=== PATIENT | female | born 1945 | race Caucasian/White ===

== ENCOUNTER 2018-03-02 10:24 | Emergency (ER) | payer OTHER, SELFPAY ==
[2018-03-02 10:36] VITALS: BP 165/79; PULSE 84; RESP 15; TEMP 37.2; O2SAT 96; BMI 34.5
--- NOTE | 2018-03-02 11:31 | DI.RAD.S_ITS ---
PROCEDURE: XR ABDOMEN 1V INDICATIONS: pain TECHNIQUE: One view of the abdomen acquired. COMPARISON: None. FINDINGS: Surgical changes and devices: None. Bowel: Bowel gas pattern is normal. There is mild/moderate stool Soft tissues: No suspicious abdominal calcifications. Visualized solid organ contours appear normal in size. Bones: No suspicious bony lesions. Discogenic changes. Bilateral hip arthroplasties. IMPRESSION: No bowel obstruction. Mild to moderate stool Dictated by: Efrem Lee M.D. on 03/02/2018 at 12:11 Approved by: Efrem Lee M.D. on 03/02/2018 at 12:12
[2018-03-02 11:44] VITALS: BP 139/61; PULSE 77; RESP 15; O2SAT 94
[2018-03-02 12:00] LABS: Add Manual Diff / Slide Review NO; Basophils Percent Auto 0.4 % (0-2); Eosinophils Percent Auto 0.7 % (2-4); Hematocrit 40.5 % (36-46); Hemoglobin 13.4 g/dL (12.0-16.0); Lymphocytes Percent Auto 18.5 % (25-40); Mean Corpuscular HGB Conc 33.1 % (30-36); Mean Corpuscular Hemoglobin 30.5 PG (26-34); Monocytes Percent Auto 7.6 % (3-14); Neutrophils Absolute Auto 10800 /uL (3000-5900); Neutrophils Percent Auto 72.8 % (50-75); Platelet Count 370 X10^3/uL (150-400); Red Blood Cell Count 4.41 X10^6/uL (4.0-5.2); White Blood Cell Count 14.8 X10^3/uL (4.5-11.0)
[2018-03-02 12:06] LABS: Alanine Aminotransferase 38 IU/L (9-52); Albumin 4.1 g/dL (3.5-5.0); Albumin Globulin Ratio 1.4 (1.0-2.8); Alkaline Phosphatase 112 U/L (38-126); Aspartate Aminotransferase 21 IU/L (14-36); BUN Creatinine Ratio 22.5 (6-22); Bilirubin Total 0.7 mg/dL (0.2-1.3); Blood Urea Nitrogen 18 mg/dL (7-17); Carbon Dioxide 29 mmol/L (22-32); Chloride 96 mmol/L (98-107); Estimated Glomerular Filt Rate > 60.0 mL/min (>60); Glucose 141 mg/dL (80-110); HEMOLYSIS < 15 (0-50); Lipase 22 U/L (23-300); Sodium 139 mmol/L (137-145); Total Protein 7.1 g/dL (6.3-8.2)
--- NOTE | 2018-03-02 12:19 | ED.ABDPAIN ---
HPI - Abdominal Pain <RAJAT Rodriguez - Last Filed: 03/02/18 15:38> General Chief Complaint: Abdominal Pain Stated Complaint: Hasn't pooped for 4 days Time Seen by Provider: 03/02/18 12:12 Source: patient Mode of arrival: ambulatory Limitations: no limitations History of Present Illness HPI narrative: Patient is a 72-year-old female with history of a volvulus who presents with chief complaint of not having had a bowel movement for 4 days. She is scared she has another bowel obstruction. She denies any fevers, chest pain, shortness of breath, nausea, vomiting. See states that she had a skinny small bowel movement yesterday as well as this morning. She states she believe she is passing gas. She is taking Gas-X to feel better, but no laxatives. She denies any dysuria urgency or frequency. She denies any vaginal complaints. she states her appetite is okay and she is eating fine Related Data Allergies Allergy/AdvReac Type Severity Reaction Status Date / Time No Known Drug Allergies Allergy Verified 03/02/18 10:36 Review of Systems <RAJAT Rodriguez - Last Filed: 03/02/18 15:38> Review of Systems GENERAL: Denies chills, fatigue, malaise, fever, sweats. HEENT: Denies sinus pain, ear pain, sore throat, difficulty swallowing, dizziness. RESPIRATORY: Denies dyspnea, cough, wheezing, hemoptysis, sputum. CARDIOVASCULAR: Denies chest pain, palpitations, orthopnea, edema, GASTROINTESTINAL: See HPI : Denies dysuria, frequency, incontinence, hematuria, urinary retention. MUSCULOSKELETAL: denies weakness, joint pain, or bony pain SKIN: Denies rash, skin lesions, or other NEUROLOGIC: Denies weakness, headache, numbness, change in speech, confusion, seizures, incoordination. PSYCHIATRIC: No concerning psychosocial issues. 12 point review of systems is negative except for those stated above Exam <RAJAT Rodriguez - Last Filed: 03/02/18 15:38> Narrative Exam Narrative: GENERAL: This is a well-nourished, well-developed patient, no acute distress reading magazines HEAD: Atraumatic. Normocephalic. No temporal or scalp tenderness. EYES: Pupils equal round and reactive. Extraocular motions intact. No scleral icterus. No injection or drainage. ENT: Nose without bleeding, purulent drainage or septal hematoma. Throat without erythema, tonsillar hypertrophy or exudate. Uvula midline. Airway patent. NECK: Trachea midline. No JVD or lymphadenopathy. Supple, nontender, no meningeal signs. CARDIOVASCULAR: Regular rate and rhythm RESPIRATORY: Clear to auscultation. Breath sounds equal bilaterally. No wheezes, rales, or rhonchi. GASTROINTESTINAL: diffusely tender to palpation lower quadrants. No guarding. Active bowel sounds all 4 quadrants. No pain at McBurney's point. No palpable mass or pulsatile mass. EXTREMITIES: No clubbing, cyanosis, or edema. No joint tenderness, effusion, or edema noted. BACK: Nontender without deformity or crepitance. No flank tenderness. NEURO: AOx3. SKIN: No rash or erythema. Initial Vital Signs Initial Vital Signs: Vital Signs Temperature 98.9 F 03/02/18 10:36 Pulse Rate 84 03/02/18 10:36 Respiratory Rate 15 03/02/18 10:36 Blood Pressure 165/79 H 03/02/18 10:36 Pulse Oximetry 96 03/02/18 10:36 <Nell Godwin DO - Last Filed: 03/02/18 19:08> Initial Vital Signs Initial Vital Signs: Vital Signs Temperature 98.9 F 03/02/18 10:36 Pulse Rate 84 03/02/18 10:36 Respiratory Rate 15 03/02/18 10:36 Blood Pressure 165/79 H 03/02/18 10:36 Pulse Oximetry 96 03/02/18 10:36 Course <NAYELY Rodriguez - Last Filed: 03/02/18 15:38> Orders Ordered: ED Orders 03/02/18 11:25 Complete Blood Count AUTO DIFF Stat Comprehensive Metabolic Panel Stat Lipase Stat 03/02/18 11:31 XR abdomen 1V Stat Vital Signs - 8 hr 03/02/18 11:44 03/02/18 13:25 Pulse Rate 77 86 Respiratory Rate 15 17 Blood Pressure [Right Arm] 139/61 144/75 H Pulse Oximetry 94 92 <DO Trinity Guerrero Last Filed: 03/02/18 19:08> Orders Ordered: ED Orders 03/02/18 11:25 Complete Blood Count AUTO DIFF Stat Comprehensive Metabolic Panel Stat Lipase Stat 03/02/18 11:31 XR abdomen 1V Stat Vital Signs - 8 hr 03/02/18 11:44 03/02/18 13:25 Pulse Rate 77 86 Respiratory Rate 15 17 Blood Pressure [Right Arm] 139/61 144/75 H Pulse Oximetry 94 92 MDM - Abdominal Pain <Nell Menjivar, UTILITIES OPERATOR-BC - Last Filed: 03/02/18 15:38> Lab Data Result diagrams: 03/02/18 11:25 03/02/18 11:25 Lab Results 03/02/18 03/02/18 Range/Units 11:25 11:25 WBC 14.8 H (4.5-11.0) X10^3/uL RBC 4.41 (4.0-5.2) X10^6/uL Hgb 13.4 (12.0-16.0) g/dL Hct 40.5 (36-46) % MCV 92.0 (80-100) fL MCH 30.5 (26-34) PG MCHC 33.1 (30-36) % RDW 14.0 (11.6-14.8) % Plt Count 370 (150-400) X10^3/uL Neut % (Auto) 72.8 (50-75) % Lymph % (Auto) 18.5 L (25-40) % [place] % (Auto) 7.6 (3-14) % Eos % (Auto) 0.7 L (2-4) % Baso % (Auto) 0.4 (0-2) % Neut # (Auto) 02010 H (8256-1033) /uL Sodium 139 (137-145) mmol/L Potassium 4.0 (3.4-5.1) mmol/L Chloride 96 L (98-107) mmol/L Carbon Dioxide 29 (22-32) mmol/L BUN 18 H (7-17) mg/dL Creatinine 0.80 (0.52-1.04) mg/dL Estimated GFR > 60.0 (>60) mL/min BUN/Creatinine Ratio 22.5 H (6-22) Glucose 141 H (80-110) mg/dL Calcium 9.0 (8.4-10.2) mg/dL Total Bilirubin 0.7 (0.2-1.3) mg/dL AST 21 (14-36) IU/L ALT 38 (9-52) IU/L Alkaline Phosphatase 112 (38-126) U/L Total Protein 7.1 (6.3-8.2) g/dL Albumin 4.1 (3.5-5.0) g/dL Globulin 3.0 (1.7-4.1) g/dL Albumin/Globulin Ratio 1.4 (1.0-2.8) Lipase 22 L (23-300) U/L Imaging Data Abdominal x-ray: Radiologist's impression: [address] [address] XRay Report Signed Patient: Rosmery Skinner#: [id number] : 5Acct:[id number] Age/Sex: 72 / FDate of Service: 03/02/18 Loc: ED Accession Number: [id number] Procedure: XR abdomen 1V Ordering Provider: Nell Godwin D.O. PROCEDURE: XR ABDOMEN 1V INDICATIONS: pain TECHNIQUE: One view of the abdomen acquired. COMPARISON: None. FINDINGS: Surgical changes and devices: None. Bowel: Bowel gas pattern is normal. There is mild/moderate stool Soft tissues: No suspicious abdominal calcifications. Visualized solid organ contours appear normal in size. Bones: No suspicious bony lesions. Discogenic changes. Bilateral hip arthroplasties. IMPRESSION: No bowel obstruction. Mild to moderate stool Dictated by: Efrem Lee M.D. on 03/02/2018 at 12:11 Approved by: Efrem Lee M.D. on 03/02/2018 at 12:12 [facility] Narrative Medical decision making narrative: patient is a 72-year-old female who presents with chief complaint of concern for small bowel obstruction. Upon exam, she is hemodynamically stable, nontoxic with stable vital signs. Her x-ray illustrate no evidence of small-bowel obstruction, but gduu-[id number] constipation. Of note the patient does have active bowel sounds, is passing gas and admits to to small thin bowel movements the past 2 days. I discussed at length with her treatment of constipation. We discussed return precautions of fever, trouble abdominal pain except aura. Patient no questions or concerns upon discharge and stated she was happy with the results of her visit. <Nell Godwin DO - Last Filed: 03/02/18 19:08> Lab Data Lab Results 03/02/18 03/02/18 Range/Units 11:25 11:25 WBC 14.8 H (4.5-11.0) X10^3/uL RBC 4.41 (4.0-5.2) X10^6/uL Hgb 13.4 (12.0-16.0) g/dL Hct 40.5 (36-46) % MCV 92.0 (80-100) fL MCH 30.5 (26-34) PG MCHC 33.1 (30-36) % RDW 14.0 (11.6-14.8) % Plt Count 370 (150-400) X10^3/uL Neut % (Auto) 72.8 (50-75) % Lymph % (Auto) 18.5 L (25-40) % [place] % (Auto) 7.6 (3-14) % Eos % (Auto) 0.7 L (2-4) % Baso % (Auto) 0.4 (0-2) % Neut # (Auto) 95738 H (5451-7399) /uL Sodium 139 (137-145) mmol/L Potassium 4.0 (3.4-5.1) mmol/L Chloride 96 L (98-107) mmol/L Carbon Dioxide 29 (22-32) mmol/L BUN 18 H (7-17) mg/dL Creatinine 0.80 (0.52-1.04) mg/dL Estimated GFR > 60.0 (>60) mL/min BUN/Creatinine Ratio 22.5 H (6-22) Glucose 141 H (80-110) mg/dL Calcium 9.0 (8.4-10.2) mg/dL Total Bilirubin 0.7 (0.2-1.3) mg/dL AST 21 (14-36) IU/L ALT 38 (9-52) IU/L Alkaline Phosphatase 112 (38-126) U/L Total Protein 7.1 (6.3-8.2) g/dL Albumin 4.1 (3.5-5.0) g/dL Globulin 3.0 (1.7-4.1) g/dL Albumin/Globulin Ratio 1.4 (1.0-2.8) Lipase 22 L (23-300) U/L Discharge Plan Departure Patient Disposition: Home Clinical Impression: Constipation Discharge Date/Time: 03/02/18 13:29 Interventions: ED Discharge Assessment Last Done: 03/02/18 13:28 Instructions: Constipation (Alternative Therapy), DI for Constipation Activity Restrictions/Additional Instructions: Your x-ray does not show any signs of a bowel blockage. It does however show moderate stool. To help prevent constipation, please be sure that you drink plenty of fluids, eat a high-fiber diet. You can take things such as Colace, senna, MiraLax, and magnesium citrate to help have a bowel movement. Monitor for severe abdominal pain, inability keep down food or fluids and fever be evaluated any of these occur. <Nell Godwin DO - Last Filed: 03/02/18 19:08> Cosign ED Attending Cosignature Attestation: I was immediately available in the department for consultation. This documentation has been reviewed and I agree with assessment and plan. Supervised by Nell Godwin DO
--- NOTE | 2018-03-02 12:22 | ED_ITS ---
HPI - Abdominal Pain <RAJAT Rodriguez - Last Filed: 03/02/18 15:38> General Chief Complaint: Abdominal Pain Stated Complaint: Hasn't pooped for 4 days Time Seen by Provider: 03/02/18 12:12 Source: patient Mode of arrival: ambulatory Limitations: no limitations History of Present Illness HPI narrative: Patient is a 72-year-old female with history of a volvulus who presents with chief complaint of not having had a bowel movement for 4 days. She is scared she has another bowel obstruction. She denies any fevers, chest pain, shortness of breath, nausea, vomiting. See states that she had a skinny small bowel movement yesterday as well as this morning. She states she believe she is passing gas. She is taking Gas-X to feel better, but no laxatives. She denies any dysuria urgency or frequency. She denies any vaginal complaints. she states her appetite is okay and she is eating fine Related Data Allergies Allergy/AdvReac Type Severity Reaction Status Date / Time No Known Drug Allergies Allergy Verified 03/02/18 10:36 Review of Systems <RAJAT Rodriguez - Last Filed: 03/02/18 15:38> Review of Systems GENERAL: Denies chills, fatigue, malaise, fever, sweats. HEENT: Denies sinus pain, ear pain, sore throat, difficulty swallowing, dizziness. RESPIRATORY: Denies dyspnea, cough, wheezing, hemoptysis, sputum. CARDIOVASCULAR: Denies chest pain, palpitations, orthopnea, edema, GASTROINTESTINAL: See HPI : Denies dysuria, frequency, incontinence, hematuria, urinary retention. MUSCULOSKELETAL: denies weakness, joint pain, or bony pain SKIN: Denies rash, skin lesions, or other NEUROLOGIC: Denies weakness, headache, numbness, change in speech, confusion, seizures, incoordination. PSYCHIATRIC: No concerning psychosocial issues. 12 point review of systems is negative except for those stated above Exam <RAJAT Rodriguez - Last Filed: 03/02/18 15:38> Narrative Exam Narrative: GENERAL: This is a well-nourished, well-developed patient, no acute distress reading magazines HEAD: Atraumatic. Normocephalic. No temporal or scalp tenderness. EYES: Pupils equal round and reactive. Extraocular motions intact. No scleral icterus. No injection or drainage. ENT: Nose without bleeding, purulent drainage or septal hematoma. Throat without erythema, tonsillar hypertrophy or exudate. Uvula midline. Airway patent. NECK: Trachea midline. No JVD or lymphadenopathy. Supple, nontender, no meningeal signs. CARDIOVASCULAR: Regular rate and rhythm RESPIRATORY: Clear to auscultation. Breath sounds equal bilaterally. No wheezes , rales, or rhonchi. GASTROINTESTINAL: diffusely tender to palpation lower quadrants. No guarding. Active bowel sounds all 4 quadrants. No pain at McBurney's point. No palpable mass or pulsatile mass. EXTREMITIES: No clubbing, cyanosis, or edema. No joint tenderness, effusion, or edema noted. BACK: Nontender without deformity or crepitance. No flank tenderness. NEURO: AOx3. SKIN: No rash or erythema. Initial Vital Signs Initial Vital Signs: Vital Signs Temperature 98.9 F 03/02/18 10:36 Pulse Rate 84 03/02/18 10:36 Respiratory Rate 15 03/02/18 10:36 Blood Pressure 165/79 H 03/02/18 10:36 Pulse Oximetry 96 03/02/18 10:36 <Nell Godwin DO - Last Filed: 03/02/18 19:08> Initial Vital Signs Initial Vital Signs: Vital Signs Temperature 98.9 F 03/02/18 10:36 Pulse Rate 84 03/02/18 10:36 Respiratory Rate 15 03/02/18 10:36 Blood Pressure 165/79 H 03/02/18 10:36 Pulse Oximetry 96 03/02/18 10:36 Course <NAYELY Rodriguez - Last Filed: 03/02/18 15:38> Orders Ordered: ED Orders 03/02/18 11:25 Complete Blood Count AUTO DIFF Stat Comprehensive Metabolic Panel Stat Lipase Stat 03/02/18 11:31 XR abdomen 1V Stat Vital Signs - 8 hr 03/02/18 11:44 03/02/18 13:25 Pulse Rate 77 86 Respiratory Rate 15 17 Blood Pressure [Right Arm] 139/61 144/75 H Pulse Oximetry 94 92 <DO Trinity Guerrero Last Filed: 03/02/18 19:08> Orders Ordered: ED Orders 03/02/18 11:25 Complete Blood Count AUTO DIFF Stat Comprehensive Metabolic Panel Stat Lipase Stat 03/02/18 11:31 XR abdomen 1V Stat Vital Signs - 8 hr 03/02/18 11:44 03/02/18 13:25 Pulse Rate 77 86 Respiratory Rate 15 17 Blood Pressure [Right Arm] 139/61 144/75 H Pulse Oximetry 94 92 MDM - Abdominal Pain <Nell Menjivar, MANAGER SIMULATION-BC - Last Filed: 03/02/18 15:38> Lab Data Result diagrams: 03/02/18 11:25 03/02/18 11:25 Lab Results 03/02/18 03/02/18 Range/Units 11:25 11:25 WBC 14.8 H (4.5-11.0) X10^3/uL RBC 4.41 (4.0-5.2) X10^6/uL Hgb 13.4 (12.0-16.0) g/dL Hct 40.5 (36-46) % MCV 92.0 (80-100) fL MCH 30.5 (26-34) PG MCHC 33.1 (30-36) % RDW 14.0 (11.6-14.8) % Plt Count 370 (150-400) X10^3/uL Neut % (Auto) 72.8 (50-75) % Lymph % (Auto) 18.5 L (25-40) % [place] % (Auto) 7.6 (3-14) % Eos % (Auto) 0.7 L (2-4) % Baso % (Auto) 0.4 (0-2) % Neut # (Auto) 87518 H (0144-5395) /uL Sodium 139 (137-145) mmol/L Potassium 4.0 (3.4-5.1) mmol/L Chloride 96 L (98-107) mmol/L Carbon Dioxide 29 (22-32) mmol/L BUN 18 H (7-17) mg/dL Creatinine 0.80 (0.52-1.04) mg/dL Estimated GFR > 60.0 (>60) mL/min BUN/Creatinine Ratio 22.5 H (6-22) Glucose 141 H (80-110) mg/dL Calcium 9.0 (8.4-10.2) mg/dL Total Bilirubin 0.7 (0.2-1.3) mg/dL AST 21 (14-36) IU/L ALT 38 (9-52) IU/L Alkaline Phosphatase 112 (38-126) U/L Total Protein 7.1 (6.3-8.2) g/dL Albumin 4.1 (3.5-5.0) g/dL Globulin 3.0 (1.7-4.1) g/dL Albumin/Globulin Ratio 1.4 (1.0-2.8) Lipase 22 L (23-300) U/L Imaging Data Abdominal x-ray: Radiologist's impression: [address] [address] XRay Report Signed Patient: Rosmery Skinner#: [id number] : 5Acct:[id number] Age/Sex: 72 / FDate of Service: 03/02/18 Loc: ED Accession Number: [id number] Procedure: XR abdomen 1V Ordering Provider: Nell Godwin D.O. PROCEDURE: XR ABDOMEN 1V INDICATIONS: pain TECHNIQUE: One view of the abdomen acquired. COMPARISON: None. FINDINGS: Surgical changes and devices: None. Bowel: Bowel gas pattern is normal. There is mild/moderate stool Soft tissues: No suspicious abdominal calcifications. Visualized solid organ contours appear normal in size. Bones: No suspicious bony lesions. Discogenic changes. Bilateral hip arthroplasties. IMPRESSION: No bowel obstruction. Mild to moderate stool Dictated by: Efrem Lee M.D. on 03/02/2018 at 12:11 Approved by: Efrem Lee M.D. on 03/02/2018 at 12:12 [facility] Narrative Medical decision making narrative: patient is a 72-year-old female who presents with chief complaint of concern for small bowel obstruction. Upon exam , she is hemodynamically stable, nontoxic with stable vital signs. Her x-ray illustrate no evidence of small-bowel obstruction, but regz-[id number] constipation. Of note the patient does have active bowel sounds, is passing gas and admits to to small thin bowel movements the past 2 days. I discussed at length with her treatment of constipation. We discussed return precautions of fever, trouble abdominal pain except aura. Patient no questions or concerns upon discharge and stated she was happy with the results of her visit. <Nell Godwin DO - Last Filed: 03/02/18 19:08> Lab Data Lab Results 03/02/18 03/02/18 Range/Units 11:25 11:25 WBC 14.8 H (4.5-11.0) X10^3/uL RBC 4.41 (4.0-5.2) X10^6/uL Hgb 13.4 (12.0-16.0) g/dL Hct 40.5 (36-46) % MCV 92.0 (80-100) fL MCH 30.5 (26-34) PG MCHC 33.1 (30-36) % RDW 14.0 (11.6-14.8) % Plt Count 370 (150-400) X10^3/uL Neut % (Auto) 72.8 (50-75) % Lymph % (Auto) 18.5 L (25-40) % [place] % (Auto) 7.6 (3-14) % Eos % (Auto) 0.7 L (2-4) % Baso % (Auto) 0.4 (0-2) % Neut # (Auto) 50029 H (3546-7847) /uL Sodium 139 (137-145) mmol/L Potassium 4.0 (3.4-5.1) mmol/L Chloride 96 L (98-107) mmol/L Carbon Dioxide 29 (22-32) mmol/L BUN 18 H (7-17) mg/dL Creatinine 0.80 (0.52-1.04) mg/dL Estimated GFR > 60.0 (>60) mL/min BUN/Creatinine Ratio 22.5 H (6-22) Glucose 141 H (80-110) mg/dL Calcium 9.0 (8.4-10.2) mg/dL Total Bilirubin 0.7 (0.2-1.3) mg/dL AST 21 (14-36) IU/L ALT 38 (9-52) IU/L Alkaline Phosphatase 112 (38-126) U/L Total Protein 7.1 (6.3-8.2) g/dL Albumin 4.1 (3.5-5.0) g/dL Globulin 3.0 (1.7-4.1) g/dL Albumin/Globulin Ratio 1.4 (1.0-2.8) Lipase 22 L (23-300) U/L Discharge Plan Departure Patient Disposition: Home Clinical Impression: Constipation Discharge Date/Time: 03/02/18 13:29 Interventions: ED Discharge Assessment Last Done: 03/02/18 13:28 Instructions: Constipation (Alternative Therapy), DI for Constipation Activity Restrictions/Additional Instructions: Your x-ray does not show any signs of a bowel blockage. It does however show moderate stool. To help prevent constipation, please be sure that you drink plenty of fluids, eat a high-fiber diet. You can take things such as Colace, senna, MiraLax, and magnesium citrate to help have a bowel movement. Monitor for severe abdominal pain, inability keep down food or fluids and fever be evaluated any of these occur. <Nell Godwin DO - Last Filed: 03/02/18 19:08> Cosign ED Attending Cosignature Attestation: I was immediately available in the department for consultation. This documentation has been reviewed and I agree with assessment and plan. Supervised by Nell Godwin DO
[2018-03-02 13:25] VITALS: BP 144/75; PULSE 86; RESP 17; O2SAT 92
== END 2018-03-02 13:29 | disposition home or self-care (01) ==
PROVIDERS: Emergency Medicine; Emergency Provider Nurse Practitioner Family
DX: K59.00 Constipation, unspecified (principal)
CPT/HCPCS: 74018; 80053; 83690; 85025; 99283; 99284

== ENCOUNTER → 2018-04-03 10:00 | Outpatient (CLI) | payer OTHER, SELFPAY ==
[2018-04-03 11:12] LABS: Alanine Aminotransferase 51 IU/L (9-52); Albumin 3.9 g/dL (3.5-5.0); Albumin Globulin Ratio 1.7 (1.0-2.8); Alkaline Phosphatase 90 U/L (38-126); Aspartate Aminotransferase 28 IU/L (14-36); Bilirubin Total 0.3 mg/dL (0.2-1.3); Bilirubin Unconjugated 0.2 mg/dL (0.0-1.1); Globulin 2.3 g/dL (1.7-4.1); HEMOLYSIS < 15 (0-50); Total Protein 6.2 g/dL (6.3-8.2)
== END ==
PROVIDERS: Visit Provider Student in an Organized Health Care Education/Training Program
DX: R94.5 Abnormal results of liver function studies (principal)
CPT/HCPCS: 36415; 80076

== ENCOUNTER → 2018-05-08 14:03 | Outpatient (CLI) | payer OTHER, SELFPAY | PROVIDERS: PCP Student in an Organized Health Care Education/Training Program; Visit Provider Student in an Organized Health Care Education/Training Program | DX: E11.9 Type 2 diabetes mellitus without complications (principal); Z78.0 Asymptomatic menopausal state | CPT/HCPCS: 77080; 77081 ==

== ENCOUNTER → 2018-07-29 07:07 | Outpatient (CLI) | payer OTHER, SELFPAY ==
[2018-07-29 07:40] LABS: Add Manual Diff / Slide Review NO; Basophils Absolute Auto 100 /uL (0-100); Basophils Percent Auto 0.6 % (0-2); Eosinophils Absolute Auto 200 /uL (0-450); Eosinophils Percent Auto 1.7 % (2-4); Hematocrit 42.2 % (36-46); Lymphocytes Absolute Auto 3600 /uL (1100-4500); Lymphocytes Percent Auto 28.7 % (25-40); Mean Corpuscular HGB Conc 33.2 % (30-36); Mean Corpuscular Hemoglobin 30.2 PG (26-34); Mean Corpuscular Volume 90.9 fL (80-100); Monocytes Absolute Auto 800 /uL (0-900); Monocytes Percent Auto 6.3 % (3-14); Neutrophils Absolute Auto 7800 /uL (1500-7000); Neutrophils Percent Auto 62.7 % (50-75); Platelet Count 352 X10^3/uL (150-400); Red Blood Cell Count 4.64 X10^6/uL (4.0-5.2); Red Cell Distribution Width 15.1 % (11.6-14.8); White Blood Cell Count 12.4 X10^3/uL (4.5-11.0)
[2018-07-29 07:43] LABS: Hemoglobin A1C% w Est Avg Glu 8.3 % (4.0-6.0)
== END ==
PROVIDERS: PCP Student in an Organized Health Care Education/Training Program; Visit Provider Student in an Organized Health Care Education/Training Program
DX: D50.9 Iron deficiency anemia, unspecified (principal); E11.9 Type 2 diabetes mellitus without complications
CPT/HCPCS: 36415; 83036; 85025

== ENCOUNTER → 2019-01-31 09:11 | Outpatient (CLI) | payer OTHER, SELFPAY ==
[2019-01-31 09:21] LABS: Bacteria Urine None Seen; RBC Urine None Seen (0-5/HPF)
[2019-01-31 10:31] LABS: Appearance Urine UA CLEAR; Bilirubin Urine UA NEGATIVE (NEGATIVE); Color Urine UA YELLOW; Glucose Urine UA NEGATIVE (Negative); Ketones Urine UA NEGATIVE (NEGATIVE); Leukocyte Esterase Urine UA TRACE (NEGATIVE); Nitrite Urine UA NEGATIVE (Negative); Occult Blood Urine UA NEGATIVE (Negative); Protein Urine UA NEGATIVE (Negative); Urobilinogen Urine UA 0.2 E.U./dL (0.2)
[2019-01-31 10:49] LABS: Culture Indicated Urine Cult Not Indicated; Squamous Epithelial Cell Urine 5-10 /HPF (0-5/HPF); WBC Urine 5-10/HPF (0-5/HPF)
== END ==
PROVIDERS: PCP Student in an Organized Health Care Education/Training Program; Visit Provider Student in an Organized Health Care Education/Training Program
DX: R35.0 Frequency of micturition (principal)
CPT/HCPCS: 81001

== ENCOUNTER → 2019-12-31 07:58 | Outpatient (CLI) | payer MEDICARE, SELFPAY ==
[2019-12-31 08:41] LABS: Hematocrit 40.1 % (36-46); Hemoglobin 13.3 g/dL (12.0-16.0); Mean Corpuscular HGB Conc 33.2 % (30-36); Mean Corpuscular Hemoglobin 31.4 PG (26-34); Mean Corpuscular Volume 94.5 fL (80-100); Platelet Count 337 X10^3/uL (150-400); Red Blood Cell Count 4.24 X10^6/uL (4.0-5.2); Red Cell Distribution Width 14.4 % (11.6-14.8); White Blood Cell Count 15.2 X10^3/uL (4.5-11.0)
[2019-12-31 08:52] LABS: Hemoglobin A1C% w Est Avg Glu 6.9 % (4.0-6.0)
[2019-12-31 09:03] LABS: HEMOLYSIS < 15 (0-50); Iron 82 ug/dL (37-170)
[2019-12-31 09:10] LABS: Alanine Aminotransferase 30 IU/L (<35); Albumin 3.8 g/dL (3.5-5.0); Albumin Globulin Ratio 1.5 (1.0-2.8); Alkaline Phosphatase 92 U/L (38-126); Aspartate Aminotransferase 26 IU/L (14-36); BUN Creatinine Ratio 22.2 (6-22); Bilirubin Total 0.5 mg/dL (0.2-1.3); Blood Urea Nitrogen 20 mg/dL (7-17); Calcium 9.8 mg/dL (8.4-10.2); Carbon Dioxide 33 mmol/L (22-32); Chloride 95 mmol/L (98-107); Cholesterol 96 mg/dL (140-199); Estimated Glomerular Filt Rate > 60.0 mL/min (>60); Globulin 2.6 g/dL (1.7-4.1); Glucose 155 mg/dL (80-110); HDL Cholesterol 50 mg/dL (40-60); HEMOLYSIS < 15 (0-50); LDL Cholesterol Calculated 17 mg/dL (<100); Potassium 4.7 mmol/L (3.4-5.1); Sodium 136 mmol/L (137-145); Total Protein 6.4 g/dL (6.3-8.2); Triglycerides 145 mg/dL (35-150)
[2019-12-31 09:14] LABS: Percent Iron Saturation 22 % (15-50); Total Iron Binding Capacity 368 ug/dL (265-497); Transferrin 292 mg/dL (206-381)
[2019-12-31 09:39] LABS: Ferritin 25 ng/mL (11-264)
== END ==
PROVIDERS: PCP Internal Medicine; Referring Provider Internal Medicine; Visit Provider Internal Medicine
DX: I10 Essential (primary) hypertension (principal); D50.9 Iron deficiency anemia, unspecified; E78.5 Hyperlipidemia, unspecified; E11.9 Type 2 diabetes mellitus without complications
CPT/HCPCS: 36415; 80053; 80061; 82728; 83036; 83540; 83550; 85027

== ENCOUNTER → 2020-02-01 18:58 | Outpatient (ROUT) | payer MEDICARE, SELFPAY ==
[2020-02-01 19:25] LABS: Add Manual Diff / Slide Review NO; Basophils Absolute Auto 100 /uL (0-100); Basophils Percent Auto 0.4 % (0-2); Eosinophils Absolute Auto 200 /uL (0-450); Eosinophils Percent Auto 1.5 % (2-4); Hematocrit 39.5 % (36-46); Hemoglobin 12.9 g/dL (12.0-16.0); Lymphocytes Absolute Auto 3900 /uL (1100-4500); Mean Corpuscular HGB Conc 32.7 % (30-36); Mean Corpuscular Hemoglobin 30.9 PG (26-34); Mean Corpuscular Volume 94.5 fL (80-100); Monocytes Absolute Auto 1100 /uL (0-900); Monocytes Percent Auto 7.2 % (3-14); Neutrophils Absolute Auto 10400 /uL (1500-7000); Neutrophils Percent Auto 65.9 % (50-75); Platelet Count 356 X10^3/uL (150-400); Red Blood Cell Count 4.19 X10^6/uL (4.0-5.2); Red Cell Distribution Width 14.5 % (11.6-14.8); White Blood Cell Count 15.8 X10^3/uL (4.5-11.0)
[2020-02-01 19:34] LABS: Alanine Aminotransferase 29 IU/L (<35); Albumin 3.6 g/dL (3.5-5.0); Albumin Globulin Ratio 1.3 (1.0-2.8); Alkaline Phosphatase 85 U/L (38-126); Aspartate Aminotransferase 29 IU/L (14-36); BUN Creatinine Ratio 29.1 (6-22); Bilirubin Total 0.5 mg/dL (0.2-1.3); Blood Urea Nitrogen 25 mg/dL (7-17); Calcium 9.4 mg/dL (8.4-10.2); Carbon Dioxide 29 mmol/L (22-32); Chloride 95 mmol/L (98-107); Estimated Glomerular Filt Rate > 60.0 mL/min (>60); Globulin 2.8 g/dL (1.7-4.1); Glucose 114 mg/dL (80-110); HEMOLYSIS < 15 (0-50); Lipase 76 U/L (23-300); Potassium 4.9 mmol/L (3.4-5.1); Sodium 134 mmol/L (137-145); Total Protein 6.4 g/dL (6.3-8.2)
== END ==
PROVIDERS: PCP Internal Medicine; Visit Provider Internal Medicine
DX: R10.11 Right upper quadrant pain (principal); N39.0 Urinary tract infection, site not specified
CPT/HCPCS: 80053; 83690; 85025; 87077; 87086; 87186

== ENCOUNTER → 2020-02-04 10:04 | Outpatient (CLI) | payer MEDICARE, SELFPAY ==
--- NOTE | 2020-02-04 10:09 | DI.US.S_ITS ---
PROCEDURE: US ABDOMEN COMPLETE INDICATIONS: RIGHT UPPER QUADRANT PAIN TECHNIQUE: Real-time scanning was performed of the abdominal and retroperitoneal organs, with image documentation. COMPARISON: None. FINDINGS: Liver: The liver demonstrates normal size. The liver demonstrates generalized increased echogenicity. This decreases ultrasound sensitivity for detection of hepatic masses. Gallbladder: Multiple gallstones are seen, with shadowing. The gallstones layer dependently. The gallbladder wall is not thickened, measuring 3 mm or less. No specific pericholecystic fluid is seen. The sonographic Rosado sign is negative. Biliary ducts: Not seen. Pancreas: Visualized portions of the pancreas are sonographically normal. Spleen: Spleen is normal in size and homogeneous in echotexture. Kidneys: Kidneys are normal in size and echotexture. Right kidney measures 9.9 cm long; left kidney measures 9.5 cm long. No nephrolithiasis. There is mild right-sided hydronephrosis. No solid masses. Aorta: Visualized aorta is normal in caliber at less than 3 cm. Iliacs: Proximal common iliac arteries are normal in caliber at less than 2.5 cm. IVC: Intrahepatic inferior vena cava is patent. Miscellaneous: No free abdominal fluid. IMPRESSION: Gallstones are seen, yet without additional sonographic signs of cholecystitis. Please correlate with physical examination findings, patient presentation, and laboratory values. The biliary ducts are not seen on this study. The liver demonstrates increased echogenicity. This finding is nonspecific, yet it is most commonly attributed to fatty infiltration. Mild right-sided hydronephrosis. Dictated by: Roger Fonseca M.D. on 02/04/2020 at 11:38 Approved by: Roger Fonseca M.D. on 02/04/2020 at 11:40
== END ==
PROVIDERS: PCP Internal Medicine; Referring Provider Internal Medicine; Visit Provider Internal Medicine
DX: R10.11 Right upper quadrant pain (principal); K80.20 Calculus of gallbladder without cholecystitis without obstruction; N13.30 Unspecified hydronephrosis
CPT/HCPCS: 76700

== ENCOUNTER → 2020-02-11 11:23 | Outpatient (CLI) | payer MEDICARE, SELFPAY ==
--- NOTE | 2020-02-11 | DI.CT.S_ITS ---
PROCEDURE: CT ABDOMEN PELVIS WO CON INDICATIONS: Calculus of kidney TECHNIQUE: Noncontrast 5 mm thick sections acquired from the diaphragms to the symphysis. 5 mm thick coronal and sagittal reformats were then performed. For radiation dose reduction, the following was used: automated exposure control, adjustment of mA and/or kV according to patient size. COMPARISON: [facility], , US ABDOMEN COMPLETE, 02/04/2020, 10:22. FINDINGS: Image quality: Excellent. Lung bases: Lung bases are clear. Heart size is normal. Urinary system: Both kidneys are normal in size. No kidney stones. No hydronephrosis or perinephric fat stranding is seen bilaterally. Both ureters appear non-dilated throughout their expected courses. Within the retroperitoneum at or adjacent to the expected course of the distal right ureter 2 small calcifications can be seen. The 1st is located on series 2, image 52 and measures 1.5 mm. The 2nd is located slightly more inferiorly, series 2, image 54 and also measures 1.5 mm. No inflammation involving the ureter in this region is seen. Bladder wall thickness is normal; no calcified bladder stones. Other solid organs: Liver is normal in size. Gallbladder contains at least 2 peripherally calcified gallstones measuring slightly less than 1 cm in diameter.. Pancreas is normal in contours. Spleen is normal in size. No adrenal nodules. Peritoneum and bowel: Unenhanced bowel loops demonstrate normal wall thickness and caliber. No free fluid or air. Nodes and vessels: No retroperitoneal or mesenteric adenopathy by size criteria. Aorta and inferior vena cava are normal in caliber. Abdominal wall: No ventral hernias. Pelvis: No free pelvic fluid. No inguinal hernias or adenopathy. Bones: No suspicious bony lesions. No vertebral body compression fractures. IMPRESSION: Within the kidneys bilaterally no calculus is found. No hydronephrosis is seen bilaterally nor is there identified hydroureter. Within the distal right ureter area above the bladder level there are 2 discrete 1.5 mm calcifications, at or immediately adjacent to the expected course of the ureters through that area. These are considered potentially small phleboliths, and contrast enhancement imaging with excretion through the right ureter would be necessary to exactly defined their position. However, at a measured size of 1.5 mm each if these were in fact ureteral calculi each should pass without significant delay into the bladder lumen and through the urethra. Two separate gallstones are present within the gallbladder lumen. There is no sign of biliary obstruction or gallbladder inflammation. Dictated by: Kingsley Chopra M.D. on 02/11/2020 at 13:51 Approved by: Kingsley Chopra M.D. on 02/11/2020 at 13:57
== END ==
PROVIDERS: PCP Internal Medicine; Referring Provider Internal Medicine; Visit Provider Internal Medicine
DX: N20.0 Calculus of kidney (principal); K80.20 Calculus of gallbladder without cholecystitis without obstruction
CPT/HCPCS: 74176

== ENCOUNTER → 2020-03-14 10:33 | Outpatient (CLI) | payer MEDICARE, SELFPAY ==
[2020-03-14 13:44] LABS: COVID19 -Nasal RAPID Negative (Negative)
== END ==
PROVIDERS: PCP Internal Medicine; Visit Provider Surgery
DX: Z01.818 Encounter for other preprocedural examination (principal)
CPT/HCPCS: 87635

== ENCOUNTER 2020-03-15 10:44 | Day surgery (SDC) | payer MEDICARE, SELFPAY ==
[2020-03-10 15:04] VITALS: BMI 32.8
[2020-03-15] VITALS (16 sets, daily range): BP systolic 96–140; BP diastolic 45–72; PULSE 70–80; RESP 12–20; TEMP 36.2–36.6; O2SAT 87–98; BMI 31.8
--- NOTE | 2020-03-15 | PATH_ITS ---
[facility] Accession Number: [id number] . 01 Material submitted: . gallbladder - GALLBLADDER . 01 Clinical history: . SDC . 02 Diagnosis: Gallbladder, Cholecystectomy: Cholelithiasis with mild chronic cholecystitis and cholesterolosis. No evidence of neoplasm. MRV 03/17/2020 1424 Local . 02 Electronically signed: . Vincenzo Holbrook MD, PhD, Pathologist NPI- [id number] . 01 Gross description: . Received in formalin, labeled gallbladder, and consists of a 6.0 x 2.5 x 2.2 cm previously disrupted gallbladder with a 0.2 cm in diameter cystic duct (blue). The serosa is white-pink and wrinkled. Opening reveals a minimal amount of green viscous bile with multiple black choleliths and cholelith fragments ranging from 0.2 to 1.0 cm. The mucosa is white-pink and velvety with cholesterolosis, and the wall thickness measures 0.1 cm. Steam Plant Operator sections are submitted, to include the en face cystic duct margin, body and fundus in cassette A1. ([id number]) /MRV 03/16/2020 1528 Local . 02 Pathologist provided ICD-10: K80.50 . 02 CPT . 475287 Performed at: 01 [facility] [address], [place], [place] [id number] MD Kennedy Amanda MD Phone: [phone] Performed at: 02 [facility] [address] [place], [place] [id number] MD Shamika Lopez MD Phone: [phone]
[2020-03-15] MEDS: LACTATED RINGERS 1,000 ML 100 ML IV (12:00)
--- NOTE | 2020-03-15 13:10 | PM.PREOP ---
Pre-operative Note COVID-19 COVID-19 status: Negative Interval Note History & Physical reviewed/Exam performed by Physician: Yes Changes to H&P: No
[2020-03-15] MEDS: CEFAZOLIN 2 GM/100 ML FROZ.PIGGY IV (13:46)
--- NOTE | 2020-03-15 14:06 | SUR.OPER ---
Supine on padded OR bed, head on pillow, safety belt at thigh, left arm padded and tucked at side. Right arm secured on padded arm board <90 degrees abduction. Legs uncrossed. Padded footboard in place. Tape over blanket to secure lower legs.
[2020-03-15] MEDS: BUPIVACAINE 0.25% (PF) VIAL 30 ML INJ (14:12)
--- NOTE | 2020-03-15 15:25 | PM.OP.1 ---
Operative Date/Time/Diagnoses Date of procedure: 03/15/20 Time of procedure: 15:25 Pre-op diagnosis: Biliary colic Post-op diagnosis: same Procedure & Clinicians Procedure: Laparoscopic cholecystectomy Same procedure as scheduled: Yes Indications: 74-year-old woman with biliary colic here for elective cholecystectomy Surgeon: Fadi Enriquez Anesthesia Type: General Operative Notes Findings: Adhesions to the right upper quadrant from prior exploratory laparotomy no evidence of acute cholecystitis Specimen(s): other (Gallbladder) Procedure in detail: The patient was placed supine on the table and bilateral lower extremity compression devices were applied. Anesthesia was induced they were intubated with an endotracheal tube and received 2g of Ancef. A time-out was performed. They were prepped and draped in sterile fashion. An infraumbilical incision was made, the umbilical stalk was elevated and the fascia was sharply incised entering the abdomen atraumatically. A blunt tip 12mm balloon trocar was then inserted, pneumoperitoneum was established and inspection of the abdomen demonstrated no evidence of injury. They were placed head up and right side up and then a 11 mm port was placed high in the epigastrium and two 5mm in the right upper quadrant. There were multiple adhesions to the right upper quadrant which were carefully lysed with sharp dissection from her prior exploratory laparotomy. Gallbladder had some chronic fat encroaching on it but there was no evidence of acute cholecystitis. The gallbladder was grasped by the fundus and retracted over the liver and retracted laterally by the infundibulum. Using electrocautery the lateral plane between the gallbladder and the liver was opened towards the fundus. The gallbladder was then retracted laterally and the medial plane was developed in the same manner. With the gallbladder mobilized the bottom of the cystic plate was visualized. The hepatocystic triangle was meticulosly skeletonized using hook electrocautery of all fat and fibrous tissue from both the front and the back. Only two structures were then clearly seen entering the gallbladder the cystic duct and the cystic artery. With the critical view of safety fully established the cystic duct was clipped twice proximally and once distally using the 10 mm hemoclip applied under direct visualization and then sharply divided. The cystic artery was divided in the same fashion. The gallbladder was removed from the liver bed using electro cautery. The liver bed was then inspected for hemostasis and this was achieved. The abdomen was irrigated with sterile saline and inspection was made that showed the clips in good position. The specimen was removed using Endo-Catch. The abdomen was desufflated. The umbilical fascia was closed with 0 Vicryl in a [id number] fashion under direct visualization. Skin incisions were irrigated and closed with 4-0 Monocryl. 30 ml of 0.25% bupivacaine was infiltrated into the subcutaneous tissue of the incisions. The wounds were sealed with Dermabond. Patient emerged from anesthesia was extubated and transferred to recovery in stable condition. The sponge and instrument count at the end of the operation was correct. Complications: none Post-operative Condition: stable Disposition: same day surgery
[2020-03-15] MEDS: HYDROMORPHONE 2 MG INJ IV ×8 (15:30→16:16)
[2020-03-15] MEDS: OXYCODONE IR 5 MG TABLET PO ×2 (15:37→16:07)
--- NOTE | 2020-03-15 17:02 | SUR.PHASEII ---
Placed patient on continuous pulse oximetry due to less than optimal oxygen saturation. Patient denies any SOB and is not in any distress. Patient continues to work on the Incentive Spirometry as directed. at beside. Weaned patient off oxygen to assess room air saturation.
[2020-03-15] MEDS: ALBUTEROL/IPRATROPIUM 3 ML AMPUL INH (17:14)
--- NOTE | 2020-03-15 17:19 | SUR.PHASEII ---
Moved pulse oximetry probe to toe due to coolness of fingers. Oxygen saturation 99% on room air.
== END 2020-03-15 17:45 | disposition home or self-care (01) ==
PROVIDERS: PCP Internal Medicine; Referring Provider Internal Medicine; Visit Provider Surgery
PROC: 0FT44ZZ Resection of Gallbladder, Percutaneous Endoscopic Approach (ICD-10-PCS; CPT 47562; principal; 2020-03-15 12:45)
DX: K80.10 Calculus of gallbladder with chronic cholecystitis without obstruction (principal); K82.8 Other specified diseases of gallbladder; E11.9 Type 2 diabetes mellitus without complications; Z79.4 Long term (current) use of insulin; I10 Essential (primary) hypertension; K21.9 Gastro-esophageal reflux disease without esophagitis
CPT/HCPCS: 47562; J0690; J1170; J2405; J2704; J3010

== ENCOUNTER → 2020-04-11 08:33 | Outpatient (CLI) | payer MEDICARE, SELFPAY | PROVIDERS: PCP Internal Medicine; Visit Provider Specialist | DX: N39.0 Urinary tract infection, site not specified (principal); N95.2 Postmenopausal atrophic vaginitis; R39.9 Unspecified symptoms and signs involving the genitourinary system; Z87.440 Personal history of urinary (tract) infections | CPT/HCPCS: 51701; 51798; 87077; 87086; 87186; 99214 ==

== ENCOUNTER → 2020-06-13 13:27 | Outpatient (CLI) | payer OTHER, SELFPAY ==
[2020-06-13 16:17] LABS: Appearance Urine UA SL CLOUDY; Bilirubin Urine UA NEGATIVE (NEGATIVE); Color Urine UA YELLOW; Glucose Urine UA NEGATIVE (Negative); Ketones Urine UA NEGATIVE (NEGATIVE); Leukocyte Esterase Urine UA NEGATIVE (NEGATIVE); Nitrite Urine UA NEGATIVE (Negative); Occult Blood Urine UA NEGATIVE (Negative); Protein Urine UA NEGATIVE (Negative); Urobilinogen Urine UA 0.2 E.U./dL (0.2)
== END ==
PROVIDERS: PCP Internal Medicine; Referring Provider Specialist; Visit Provider Specialist
DX: N39.0 Urinary tract infection, site not specified (principal)
CPT/HCPCS: 81003

== ENCOUNTER → 2020-08-01 08:36 | Outpatient (CLI) | payer OTHER, SELFPAY ==
--- NOTE | 2020-08-01 08:41 | DI.RAD.S_ITS ---
PROCEDURE: XR WRIST LT MIN 3V INDICATIONS: RIGHT /LEFT WRIST PAIN TECHNIQUE: 5 views of the wrist were acquired. COMPARISON: None. FINDINGS: Bones: The bones are demineralized. There is extensive calcification in the triangular fibrocartilage consistent with chondrocalcinosis. No marginal erosions. There are degenerative changes of the 1st carpometacarpal joint consistent with osteoarthritis. Scaphoid view: No fracture Soft tissues: No suspicious soft tissue calcifications. IMPRESSION: 1. 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 2. Bones appear demineralized. Dictated by: Wali Ortiz M.D. on 08/01/2020 at 9:52 Approved by: Wali Ortiz M.D. on 08/01/2020 at 9:55
--- NOTE | 2020-08-01 08:41 | DI.RAD.S_ITS ---
PROCEDURE: XR WRIST RT MIN 3V INDICATIONS: RIGHT/LEFT WRIST PAIN TECHNIQUE: 4 views of the wrist were acquired. COMPARISON: [facility], CR, XR WRIST LT MIN 3V, 08/01/2020, 9:12. FINDINGS: Bones: The bones are demineralized. The degenerative changes of the 1st carpometacarpal joint are consistent with osteoarthritis. There are calcifications in the triangular fibrocartilage consistent with chondrocalcinosis. The interphalangeal joints appear relatively well preserved without significant degenerative changes or erosions except minimal degenerative changes of the little finger PIP. Scaphoid view: No scaphoid fracture Soft tissues: No suspicious soft tissue calcifications. IMPRESSION: 1. Degenerative changes of the 1st carpometacarpal joint consistent with osteoarthritis. 2. Chondrocalcinosis. Differential diagnosis includes but is not limited to hemochromatosis, hyperparathyroidism, and CPPD. 3. Demineralized bone. Dictated by: Wali Ortiz M.D. on 08/01/2020 at 10:15 Approved by: Wali Ortiz M.D. on 08/01/2020 at 10:17
[2020-08-01 09:07] LABS: Add Manual Diff / Slide Review NO; Basophils Absolute Auto 100 /uL (0-100); Basophils Percent Auto 0.5 % (0-2); Eosinophils Absolute Auto 200 /uL (0-450); Eosinophils Percent Auto 1.6 % (2-4); Hematocrit 41.1 % (36-46); Hemoglobin 13.4 g/dL (12.0-16.0); Lymphocytes Absolute Auto 3000 /uL (1100-4500); Lymphocytes Percent Auto 22.6 % (25-40); Mean Corpuscular HGB Conc 32.7 % (30-36); Mean Corpuscular Hemoglobin 30.7 PG (26-34); Monocytes Absolute Auto 600 /uL (0-900); Monocytes Percent Auto 4.8 % (3-14); Neutrophils Absolute Auto 9300 /uL (1500-7000); Neutrophils Percent Auto 70.5 % (50-75); Platelet Count 288 X10^3/uL (150-400); Red Blood Cell Count 4.37 X10^6/uL (4.0-5.2); Red Cell Distribution Width 14.2 % (11.6-14.8); White Blood Cell Count 13.2 X10^3/uL (4.5-11.0)
[2020-08-01 09:13] LABS: Hemoglobin A1C% w Est Avg Glu 6.8 % (4.0-6.0)
[2020-08-01 09:20] LABS: Alanine Aminotransferase 26 IU/L (<35); Albumin 3.7 g/dL (3.5-5.0); Albumin Globulin Ratio 1.5 (1.0-2.8); Alkaline Phosphatase 89 U/L (38-126); Aspartate Aminotransferase 29 IU/L (14-36); BUN Creatinine Ratio 26.5 (6-22); Bilirubin Total 0.4 mg/dL (0.2-1.3); Blood Urea Nitrogen 26 mg/dL (7-17); Calcium 9.8 mg/dL (8.4-10.2); Carbon Dioxide 28 mmol/L (22-32); Chloride 100 mmol/L (98-107); Cholesterol 98 mg/dL (140-199); Estimated Glomerular Filt Rate 55.2 mL/min (>60); Globulin 2.5 g/dL (1.7-4.1); Glucose 124 mg/dL (80-110); HDL Cholesterol 48 mg/dL (40-60); HEMOLYSIS < 15 (0-50); LDL Cholesterol Calculated 21 mg/dL (<100); Potassium 4.7 mmol/L (3.4-5.1); Sodium 137 mmol/L (137-145); Total Protein 6.2 g/dL (6.3-8.2); Triglycerides 143 mg/dL (35-150)
[2020-08-01 10:44] LABS: Creatinine Urine Random 83.2 mg/dL
[2020-08-01 10:49] LABS: Microalbumin Urine Random < 0.6 mg/dL (0-1.6)
== END ==
PROVIDERS: PCP Internal Medicine; Referring Provider Internal Medicine; Visit Provider Internal Medicine
DX: M25.531 Pain in right wrist (principal); M25.532 Pain in left wrist; M11.232 Other chondrocalcinosis, left wrist; M11.231 Other chondrocalcinosis, right wrist; M18.12 Unilateral primary osteoarthritis of first carpometacarpal joint, left hand; D50.9 Iron deficiency anemia, unspecified; E11.9 Type 2 diabetes mellitus without complications; E78.00 Pure hypercholesterolemia, unspecified; I10 Essential (primary) hypertension
CPT/HCPCS: 36415; 73110; 80053; 80061; 82043; 82570; 83036; 85025

== ENCOUNTER → 2020-08-23 18:36 | Outpatient (ROUT) | payer OTHER, SELFPAY ==
[2020-08-23 20:04] LABS: Ferritin 27 ng/mL (11-264)
== END ==
PROVIDERS: PCP Internal Medicine; Visit Provider Internal Medicine
DX: D50.9 Iron deficiency anemia, unspecified (principal)
CPT/HCPCS: 82728

== ENCOUNTER → 2020-09-09 19:07 | Outpatient (ROUT) | payer OTHER, SELFPAY | PROVIDERS: PCP Internal Medicine; Visit Provider Internal Medicine | DX: N39.0 Urinary tract infection, site not specified (principal) | CPT/HCPCS: 87077; 87086; 87186 ==

== ENCOUNTER → 2021-04-04 09:52 | Outpatient (CLI) | payer OTHER, SELFPAY ==
--- NOTE | 2021-04-05 18:41 | DI.NM.S_ITS ---
DATE OF SERVICE: 04/04/2021 PROCEDURE PERFORMED: Exercise treadmill stress and rest myocardial perfusion imaging with gating to assess ejection fraction and regional wall motion. ORDERING PROVIDER: Dr. Nicole Mclean. INDICATIONS: The patient is a 75-year-old diabetic female with atypical chest pain. CARDIAC STRESS: The patient was able to exercise for 3 minutes, 20 seconds on a standard Rai protocol suggesting moderate-severely reduced exercise capacity with an HESHAM of +34%. She had a moderately accelerated heart rate response to exercise with a resting heart rate of 104 BPM increasing to a maximum of 149 BPM (103% of her predicted maximum). She had a normal blood pressure response. She had no chest discomfort or other anginal symptoms. Her resting ECG shows sinus rhythm with normal ST segments. There are no significant ST-segment shifts or arrhythmias with stress. At 2 minutes, 30 seconds of exercise at a heart rate of 144 BPM, 26.8 millicuries of technetium-99m Myoview was injected. She was imaged 15 minutes later using a gated SPECT acquisition protocol. The day prior she had been injected with 25.8 millicuries of technetium-99m Myoview at rest and imaged 30 minutes later, again using a gated SPECT acquisition protocol. FINDINGS: 1. Raw data: There is fairly good myocardial tracer uptake with moderate breast shadows noted. The lung/heart ratio is normal at 0.27 with a normal TID ratio of 0.67. 2. Quantitated gated SPECT: Post-stress ejection fraction is estimated at 87% without any focal wall motion abnormality and is likely an overestimate due to relatively small left ventricular volumes. Resting ejection fraction is also estimated at 87% with an end-diastolic volume is 60 mL. 3. Myocardial perfusion imaging: Post-stress supine images shows a fairly normal myocardial perfusion pattern without any perfusion defects, supported by normal perfusion imaging in the prone position. The resting images show no areas of significant improvement. IMPRESSION: 1. Normal myocardial perfusion study. 2. No evidence for myocardial ischemia or previous myocardial infarction. 3. High normal left ventricular systolic function without focal wall motion abnormality and relatively small left ventricular volumes. 4. Moderate-severely reduced exercise capacity without angina or ECG evidence of ischemia. She had mild resting sinus tachycardia with an accentuated heart rate response to exercise, suggesting probable impaired cardiovascular fitness. Jaz Grayson - CHOLO/xin/john doc#: [id number]/job#: [id number] dd: 04/05/2021 16:38:00 dt: 04/05/2021 18:25:00 DICTATING MD/COPIES TO: John Lazcano MD; Nicole Mclean MD COPIES MNE: GALINDO;
== END ==
PROVIDERS: PCP Internal Medicine; Referring Provider Internal Medicine; Visit Provider Internal Medicine
DX: R07.89 Other chest pain (principal)
CPT/HCPCS: 78452; 93017; A9502

== ENCOUNTER → 2021-07-27 10:21 | Outpatient (CLI) | payer OTHER, SELFPAY | PROVIDERS: PCP Internal Medicine; Referring Provider Orthopaedic Surgery; Visit Provider Orthopaedic Surgery | DX: M25.551 Pain in right hip (principal); Z96.641 Presence of right artificial hip joint | CPT/HCPCS: 36415; 82495; 83018 ==

== ENCOUNTER → 2022-10-18 09:55 | Outpatient (CLI) | payer OTHER, SELFPAY ==
[2022-10-18 10:35] LABS: BUN Creatinine Ratio 17.4 (6-22); Blood Urea Nitrogen 20 mg/dL (7-17); Calcium 8.9 mg/dL (8.4-10.2); Carbon Dioxide 31 mmol/L (22-32); Chloride 99 mmol/L (98-107); Estimated Glomerular Filt Rate 49 mL/min (>60); Glucose 163 mg/dL (80-110); HEMOLYSIS < 15 (0-50); Sodium 137 mmol/L (137-145)
== END ==
PROVIDERS: PCP Internal Medicine; Referring Provider Nurse Practitioner; Visit Provider Nurse Practitioner
DX: E11.65 Type 2 diabetes mellitus with hyperglycemia (principal)
CPT/HCPCS: 36415; 80048

== ENCOUNTER → 2023-01-08 12:52 | Outpatient (CLI) | payer OTHER, SELFPAY ==
[2023-01-08 14:53] LABS: Blood Urea Nitrogen 21 mg/dL (7-17); Carbon Dioxide 27 mmol/L (22-32); Chloride 96 mmol/L (98-107); Potassium 4.8 mmol/L (3.4-5.1); Sodium 135 mmol/L (137-145)
[2023-01-08 14:54] LABS: BUN Creatinine Ratio 17.5 (6-22); Estimated Glomerular Filt Rate 46 mL/min (>60); Glucose 120 mg/dL (80-110); HEMOLYSIS 69 (0-50)
== END ==
PROVIDERS: PCP Internal Medicine; Referring Provider Nurse Practitioner; Visit Provider Nurse Practitioner
DX: E11.65 Type 2 diabetes mellitus with hyperglycemia (principal)
CPT/HCPCS: 36415; 80048

== ENCOUNTER → 2023-08-14 08:01 | Outpatient (CLI) | payer MEDICARE, SELFPAY ==
[2023-08-14 09:57] LABS: Hemoglobin A1C% w Est Avg Glu 7.5 % (4.0-6.0)
[2023-08-14 10:05] LABS: HEMOLYSIS < 15 (0-50)
[2023-08-14 10:25] LABS: Alanine Aminotransferase 35 IU/L (<35); Albumin Globulin Ratio 1.4 (1.0-2.8); Alkaline Phosphatase 84 U/L (38-126); Aspartate Aminotransferase 39 IU/L (14-36); BUN Creatinine Ratio 17.6 (6-22); Bilirubin Total 0.6 mg/dL (0.2-1.3); Blood Urea Nitrogen 23 mg/dL (7-17); Calcium 9.5 mg/dL (8.4-10.2); Carbon Dioxide 30 mmol/L (22-32); Chloride 99 mmol/L (98-107); Estimated Glomerular Filt Rate 41 mL/min (>60); Globulin 2.9 g/dL (1.7-4.1); Glucose 106 mg/dL (80-110); Potassium 4.6 mmol/L (3.4-5.1); Sodium 137 mmol/L (137-145); Total Protein 6.9 g/dL (6.3-8.2)
[2023-08-14 11:00] LABS: Creatinine Urine Random 72.3 mg/dL
[2023-08-14 11:04] LABS: Microalbumi Creatinin Ratio Ur 9.6 ug/mg CR (<30); Microalbumin Urine Random 0.7 mg/dL (0-1.6)
[2023-08-15 08:11] LABS: Cholesterol HDL Ratio 2.1 ratio (0.0-4.4); Cholesterol,Total 104 mg/dL (100-199); HDL Cholesterol 50 mg/dL (>39); LDL Cholesterol Cal 33 mg/dL (0-99); Triglycerides 120 mg/dL (0-149); VLDL Cholesterol Cal 21 mg/dL (5-40)
[2023-08-15 12:32] LABS: Vitamin B12 692 pg/mL (239-931)
== END ==
PROVIDERS: PCP Internal Medicine; Referring Provider Nurse Practitioner; Visit Provider Nurse Practitioner
DX: E11.65 Type 2 diabetes mellitus with hyperglycemia (principal); E78.2 Mixed hyperlipidemia
CPT/HCPCS: 36415; 80053; 80061; 82043; 82570; 82607; 83036

== ENCOUNTER → 2023-12-10 09:01 | Outpatient (CLI) | payer MEDICARE, SELFPAY ==
--- NOTE | 2023-12-10 09:03 | DI.RAD.S_ITS ---
PROCEDURE: XR CHEST 2V INDICATIONS: COUGH TECHNIQUE: 2 views of the chest were acquired. COMPARISON: None. FINDINGS: Surgical changes and devices: None. Lungs and pleura: Lungs are clear. No pleural effusions or pneumothorax. Mediastinum: Mediastinal contours are normal. Heart size is normal. Bones and chest wall: No suspicious bony abnormalities. Soft tissues appear unremarkable. Degenerative changes of the spine. Calcification of the abdominal aorta. IMPRESSION: No acute cardiopulmonary process. Dictated by: David Quinonez M.D. on 12/10/2023 at 14:57 Approved by: David Quinonez M.D. on 12/10/2023 at 14:58
== END ==
PROVIDERS: PCP Internal Medicine; Referring Provider Internal Medicine; Visit Provider Internal Medicine
DX: R05.3 Chronic cough (principal)
CPT/HCPCS: 71046

== ENCOUNTER → 2024-09-09 11:37 | Outpatient (CLI) | payer MEDICARE, SELFPAY ==
[2024-09-09 13:36] LABS: Alanine Aminotransferase 35 IU/L (<35); Albumin 4.4 g/dL (3.5-5.0); Albumin Globulin Ratio 1.7 (1.0-2.8); Alkaline Phosphatase 77 U/L (38-126); Aspartate Aminotransferase 36 IU/L (14-36); BUN Creatinine Ratio 15.2 (6-22); Bilirubin Total 0.9 mg/dL (0.2-1.3); Blood Urea Nitrogen 22 mg/dL (7-17); Calcium 9.8 mg/dL (8.4-10.2); Carbon Dioxide 29 mmol/L (22-32); Chloride 94 mmol/L (98-107); Cholesterol 98 mg/dL (140-199); Estimated Glomerular Filt Rate 36 mL/min (>60); Globulin 2.6 g/dL (1.7-4.1); Glucose 115 mg/dL (70-99); HDL Cholesterol 58 mg/dL (40-60); HEMOLYSIS 44 (0-50); LDL Cholesterol Calculated 18 mg/dL (<100); Potassium 5.5 mmol/L (3.4-5.1); Sodium 135 mmol/L (137-145); Triglycerides 110 mg/dL (35-150)
[2024-09-09 14:25] LABS: Vitamin B12 280 pg/mL (239-931)
[2024-09-09 15:43] LABS: Microalbumin Urine Random 5.1 mg/dL (0-1.6)
== END ==
LOC: LAB 11:39
PROVIDERS: PCP Internal Medicine; Referring Provider Nurse Practitioner; Visit Provider Nurse Practitioner
DX: E11.65 Type 2 diabetes mellitus with hyperglycemia (principal); E78.2 Mixed hyperlipidemia
CPT/HCPCS: 36415; 80053; 80061; 82043; 82570; 82607; 83036

== ENCOUNTER → 2025-02-22 14:10 | Outpatient (CLI) | payer MEDICARE, SELFPAY ==
[2025-02-22 15:56] LABS: Blood Urea Nitrogen 29 mg/dL (7-17); Calcium 9.8 mg/dL (8.4-10.2); Carbon Dioxide 31 mmol/L (22-32); Chloride 94 mmol/L (98-107); Estimated Glomerular Filt Rate 36 mL/min (>60); Glucose 279 mg/dL (70-99); HEMOLYSIS < 15 (0-50); Potassium 5.5 mmol/L (3.4-5.1); Sodium 132 mmol/L (137-145)
== END ==
PROVIDERS: PCP Family Medicine; Referring Provider Internal Medicine Nephrology; Visit Provider Internal Medicine Nephrology
DX: N18.32 Chronic kidney disease, stage 3b (principal)
CPT/HCPCS: 36415; 80048

== ENCOUNTER → 2025-02-26 13:40 | Outpatient (CLI) | payer MEDICARE, SELFPAY ==
[2025-02-26 14:27] LABS: Appearance Urine UA SL CLOUDY; Bilirubin Urine UA NEGATIVE (NEGATIVE); Color Urine UA YELLOW; Glucose Urine UA 3+ g/dL (Negative); Ketones Urine UA NEGATIVE (NEGATIVE); Leukocyte Esterase Urine UA TRACE (NEGATIVE); Nitrite Urine UA NEGATIVE (Negative); Occult Blood Urine UA NEGATIVE (Negative); Protein Urine UA NEGATIVE (Negative); Specific Gravity Urine UA 1.010 (1.000-1.035); Urobilinogen Urine UA 0.2 E.U./dL (0.2); pH Urine UA 5.5 (4.5-8.0)
[2025-02-26 14:29] LABS: Culture Indicated Urine Specimen Cultured
[2025-02-26 14:42] LABS: Magnesium 1.5 mg/dL (1.6-2.3)
[2025-02-26 14:56] LABS: Protein (Total) Urine Random 8 mg/dL (0-12); Protein Creatinine Ratio Urine 0.15 GRAM/24H
== END ==
LOC: LAB 13:41
PROVIDERS: PCP Family Medicine; Referring Provider Internal Medicine Nephrology; Visit Provider Internal Medicine Nephrology
DX: N18.32 Chronic kidney disease, stage 3b (principal)
CPT/HCPCS: 36415; 81001; 82570; 83735; 84156; 87086; 87147

== ENCOUNTER → 2025-03-10 11:39 | Outpatient (CLI) | payer MEDICARE, SELFPAY ==
--- NOTE | 2025-03-10 11:40 | DI.US.S_ITS ---
PROCEDURE: US RENAL COMPLETE
== END ==
LOC: US 11:40
PROVIDERS: PCP Family Medicine; Referring Provider Internal Medicine Nephrology; Visit Provider Internal Medicine Nephrology
DX: N18.32 Chronic kidney disease, stage 3b (principal)
CPT/HCPCS: 76770